=== PATIENT | female | born 1990 | race Native Hawaiian/Other Pacific Islander ===

== ENCOUNTER → 2020-04-26 | Outpatient (CLI) | payer OTHER ==
--- NOTE | 2020-04-26 08:48 | US ---
EXAMINATION TYPE: Transabdominal DATE OF EXAM: 04/26/2020 8:15 AM COMPARISON: NONE CLINICAL HISTORY: Z36 Confirm dates. EXAM PERFORMED: Transabdominal (TA) EXAM MEASUREMENTS: GESTATIONAL AGE / DATING Physician Established: Not yet established Dates by LMP: (10 weeks/3 days) EDC: Dates by First Scan: ( weeks/ days) EDC: Dates by Current Scan for: ( weeks/ days) EDC: MATERNAL ANATOMY Uterus: 12.9 x 7.7 x 3.5cm Right Ovary: 3.5 x 2.1 x 1.6cm Left Ovary: 2.6 x 1.6 x 1.9cm Post CDS / Adnexa: wnl Presence of free fluid: no Presence of corpus luteal cyst: 2 probable subchorionic bleeds measuring 1.2 x 1.3 x 0.8cm and 1.9 x 0.4 x 1.1cm GESTATION / SURVEY CRL: 2.8cm (9 weeks/4 days) Yolk Sac (normal less than 6mm): 4mm Heart Rate: 171 bpm Rhythm: Normal IUP: Viable IUP Date of LMP: 02/13/20 Beta HcG (if available): IMPRESSION: Single viable intrauterine . Subchorionic hemorrhage as noted.
[2020-04-26 08:57] LABS: HCT 36.4 % (34.0-46.0); MCH 28.4 pg (25.0-35.0); MCV 86.2 fL (80.0-100.0); Mean Platelet Volume 7.1; Platelet Count 289 k/uL (150-450); RBC 4.21 m/uL (3.80-5.40); RDW 12.9 % (11.5-15.5); WBC 8.4 k/uL (3.8-10.6)
[2020-04-26 09:15] LABS: African American GFR (CKD) >90 (>60 ml/min/1.73 sqM); Glucose 96 mg/dL (74-99); Non-African American GFR(CKD) >90 (>60 ml/min/1.73 sqM)
[2020-04-26 16:00] LABS: HIV 2 AB Non-Reactive (Non-Reactive); HIV AB P24 Non-Reactive (Non-Reactive); HIV P24 AG Non-Reactive (Non-Reactive)
== END | disposition home or self-care (01) ==
LOC: RADUSWWP 07:48
PROVIDERS: ATTEND Obstetrics & Gynecology
DX: O20.8 Other hemorrhage in early pregnancy (principal); Z3A.10 10 weeks gestation of pregnancy
CPT/HCPCS: 76801; 82565; 82947; 85027; 86762; 86780; 86850; 86900; 86901; 87340; 87390

== ENCOUNTER 2020-11-22 13:22 | Inpatient (IN) | payer OTHER ==
[2020-11-22] MEDS ORDERED: BUTORPHANOL 1 MG/ML 1 ML VIAL IV PRN (16:49)
[2020-11-22] MEDS ORDERED: DINOPROSTONE 10 MG INSERT.ER VAGINAL ONE (16:49)
[2020-11-22 17:00] VITALS: BP 118/76; PULSE 101; RESP 17; TEMP 98.4
--- NOTE | 2020-11-22 17:07 | P.HPOB ---
History of Present Illness H&P Date: 11/22/20 Chief Complaint: Requested induction of labor. This patient is a pleasant 30-year-old 2 para 1 female estimated date of confinement 11/22/2020 estimated gestational age 40-0/7 weeks who presents to labor and delivery for requested induction of labor. Patient's cervix is unfavorable and therefore presents for Cervidil placement. care has been uncomplicated. Review of Systems Genitourinary: Reports Menstruation: Reports amenorrhea Past Medical History Past Medical History: No Reported History Additional Past Medical History / Comment(s): Patient had a previous term vaginal delivery History of Any Multi-Drug Resistant Organisms: None Reported Past Surgical History: No Surgical Hx Reported Past Anesthesia/Blood Transfusion Reactions: No Reported Reaction Past Psychological History: No Psychological Hx Reported Smoking Status: Former smoker Past Alcohol Use History: None Reported Past Drug Use History: None Reported Medications and Allergies Home Medications Medication Instructions Recorded Confirmed Type No Known Home Medications 11/22/20 11/22/20 History Allergies Allergy/AdvReac Type Severity Reaction Status Date / Time No Known Allergies Allergy Verified 11/22/20 16:48 Exam Intake and Output 11/22/20 11/22/20 11/22/20 06:59 14:59 22:59 Other: Weight 111.13 kg - OBG Physical Exam Abdomen: bowel sounds normal, no diffuse tenderness, no bruit present, no guarding noted, no hepatomegaly, no splenomegaly, no mass Vulva: both: normal Vagina: normal moisture, no discharge Cervix: no lesion (Cervix is fingertip external os and uneffaced.), no discharge Uterus: enlarged (Fundal height 41 cm) Results blood work shows she is A positive, rubella immune, RPR nonreactive, hepatitis B negative, HIV is nonreactive, Glucola was 144 with a normal three- hour gtt., group B strep was negative, ultrasounds showed growth to be normal as well as anatomy. Assessment and Plan Assessment: This is a pleasant 30-year-old 2 para 1 female 40-0/7 weeks gestation with unfavorable cervix is presenting requesting induction of labor. Plan is Cervidil placement and anticipate vaginal delivery. (1) 40 weeks gestation of Current Visit: Yes Status: Acute Code(s): Z3A.40 - 40 WEEKS GESTATION OF SNOMED Code(s): 95507910 (2) Elective induction of labor planned Current Visit: Yes Status: Acute Code(s): OGJ8405 - SNOMED Code(s): 972251274
[2020-11-23] MEDS ORDERED: LIDOCAINE 0.5% (PF) 5 MG/ML (50 ML SDV) SQ PRN (05:26)
[2020-11-23] MEDS ORDERED: OXYTOCIN 10 UNIT/ML 1 ML VIAL IM PRN (05:26)
[2020-11-23] MEDS ORDERED: OXYTOCIN 30 UNITS/500 ML NS 30 UNIT in SALINE 1 500ML.BAG IV SCH (05:26)
[2020-11-23] MEDS ORDERED: CARBOPROST TROMETHAMINE 250 MCG/ML 1 ML AMP IM PRN (05:26)
[2020-11-23] MEDS ORDERED: TERBUTALINE 1 MG/ML VIAL SQ PRN (05:26)
[2020-11-23] MEDS ORDERED: LACTATED RINGERS 1,000 ML IV SCH (05:26)
[2020-11-23] MEDS ORDERED: METHYLERGONOVINE 0.2 MG/ML 1 ML AMP IM PRN (05:26)
--- NOTE | 2020-11-23 06:05 | P.PN ---
Progress Note - Text Progress Note Date: 11/23/20 Cervidil was removed earlier this morning. heart tones are category 1. Cervical exam shows cervix to be still closed internal os and thick. I discussed options with the patient including going home in retrying Cervidil and 2 days for next week, trial of Pitocin this morning, or outright . Patient has chosen to try the Pitocin this morning and most likely if this is ineffective come back in a different day and trying Cervidil again. Therefore this point we'll try Pitocin and reevaluate later on today.
[2020-11-23 06:37] LABS: Basophils % (A) 0 %; Eosinophils # (A) 0.1 k/uL (0-0.7); Eosinophils % (A) 1 %; HCT 29.3 % (34.0-46.0); HGB 9.8 gm/dL (11.4-16.0); Lymphocytes % (A) 23 %; MCHC 33.5 g/dL (31.0-37.0); MCV 80.6 fL (80.0-100.0); Monocytes # (A) 0.5 k/uL (0-1.0); Monocytes % (A) 5 %; Neutrophils # (A) 6.1 k/uL (1.3-7.7); Neutrophils % (A) 69 %; Platelet Count 332 k/uL (150-450); RBC 3.64 m/uL (3.80-5.40); RDW 15.7 % (11.5-15.5); WBC 8.7 k/uL (3.8-10.6)
--- NOTE | 2020-11-24 06:30 | P.DS ---
Providers Date of admission: 11/22/20 16:37 Expected date of discharge: 11/24/20 Attending physician: Nick Arzola Primary care physician: Stated None - Discharge Diagnosis(es) (1) 40 weeks gestation of Status: Acute (2) Elective induction of labor planned Status: Acute Hospital Course: Please see dictated H&P and progress notes on this patient's admission. Brief summary this pleasant 30-year-old 2 para 1 female 40 weeks gestation admitted for two-stage induction of labor. Despite Cervidil and Pitocin she had no cervical change and was not dilated. I discussed options with the patient including outright section versus coming back later to different date and trying Cervidil again and she elected to proceed with going home and coming back try Cervidil another day. Patient come back on the for Cervidil placement attempt at induction again. heart tones were reactive the entire time in the hospital without concerns. Patient Condition at Discharge: Stable Plan - Discharge Summary New Discharge Prescriptions: No Action Pnv No.95/Ferrous Fum/Folic AC [ Multivitamin Tablet] 1 tab PO DAILY Discharge Medication List Pnv No.95/Ferrous Fum/Folic AC [ Multivitamin Tablet] 1 tab PO DAILY 11/23/20 [History] Discharge Disposition: HOME SELF-CARE
== END 2020-11-23 12:02 | disposition home or self-care (01) | DRG 833 ==
LOC: 4FBP 16:37
PROVIDERS: ADMIT Obstetrics & Gynecology; ATTEND Obstetrics & Gynecology
DX: O48.0 Post-term pregnancy (principal); Z3A.40 40 weeks gestation of pregnancy; Z87.891 Personal history of nicotine dependence
CPT/HCPCS: 85025; 86850; 86900; 86901

== ENCOUNTER 2020-11-24 16:01 | Inpatient (IN) | payer OTHER ==
[2020-11-24] MEDS ORDERED: DINOPROSTONE 10 MG INSERT.ER VAGINAL ONE (16:03)
--- NOTE | 2020-11-24 17:17 | P.HPOB ---
History of Present Illness H&P Date: 11/24/20 Chief Complaint: Post dates for induction This patient is a pleasant 30-year-old 2 para 1 female estimated date of confinement 11/22/2020 estimated gestational age 40-2/7 weeks who presents to labor and delivery for two-stage induction of labor secondary to postdates and unfavorable cervix. Patient was here approximately 2 days ago and had an attempted Cervidil placement and Pitocin without change in her cervix. At that time I discussed delivery by section versus trial again of the Cervidil and she elected to try the Cervidil again. care has been uncomplicated. Review of Systems Genitourinary: Reports Menstruation: Reports amenorrhea Past Medical History Past Medical History: No Reported History Additional Past Medical History / Comment(s): Patient had a previous term vaginal delivery History of Any Multi-Drug Resistant Organisms: None Reported Past Surgical History: No Surgical Hx Reported Additional Past Surgical History / Comment(s): [place] tooth extraction Past Anesthesia/Blood Transfusion Reactions: No Reported Reaction Past Psychological History: No Psychological Hx Reported Smoking Status: Former smoker Past Alcohol Use History: None Reported Past Drug Use History: None Reported - Past Family History Mother Family Medical History: Cancer, Diabetes Mellitus Additional Family Medical History / Comment(s): Type II DM Medications and Allergies Home Medications Medication Instructions Recorded Confirmed Type Pnv No.95/Ferrous Fum/Folic AC 1 tab PO DAILY 11/23/20 11/24/20 History [ Multivitamin Tablet] Allergies Allergy/AdvReac Type Severity Reaction Status Date / Time No Known Allergies Allergy Verified 11/24/20 16:02 Exam Vital Signs Temp Pulse Resp BP 11/24/20 16:09 97.7 F 99 16 117/59 Intake and Output 11/24/20 11/24/20 11/24/20 06:59 14:59 22:59 Other: Weight 111.13 kg - OBG Physical Exam Abdomen: bowel sounds normal, no diffuse tenderness, no bruit present, no guarding noted, no hepatomegaly, no splenomegaly, no mass Vulva: both: normal Cervix: no lesion (Cervix is closed and effaced -3 station), no discharge Uterus: enlarged (Fundal height is 41 cm) Results blood work shows she is A+, rubella immune, RPR is nonreactive, HIV is nonreactive, hepatitis B is negative, Glucola was 144 with a normal three-hour gtt., group B strep was negative, ultrasounds done has shown normal anatomy and growth. Assessment and Plan Assessment: This is a pleasant 30-year-old 2 para 1 female 40-3/7 weeks gestation who is admitted for two-stage induction of labor. Plan is Cervidil placement and anticipate vaginal delivery. I did discuss with the patient that if she does not change with this attempt at induction we may need to proceed with section for delivery. (1) 40 weeks gestation of Current Visit: No Status: Acute Code(s): Z3A.40 - 40 WEEKS GESTATION OF SNOMED Code(s): 65353388
[2020-11-25] MEDS ORDERED: LIDOCAINE 0.5% (PF) 5 MG/ML (50 ML SDV) SQ PRN (05:47)
[2020-11-25] MEDS ORDERED: TERBUTALINE 1 MG/ML VIAL SQ PRN (05:47)
[2020-11-25] MEDS ORDERED: CARBOPROST TROMETHAMINE 250 MCG/ML 1 ML AMP IM PRN (05:47)
[2020-11-25] MEDS ORDERED: METHYLERGONOVINE 0.2 MG/ML 1 ML AMP IM PRN (05:47)
[2020-11-25] MEDS ORDERED: OXYTOCIN 10 UNIT/ML 1 ML VIAL IM PRN (05:47)
[2020-11-25] MEDS ORDERED: OXYTOCIN 30 UNITS/500 ML NS 30 UNIT in SALINE 1 500ML.BAG IV SCH ×3 (05:47→17:15)
[2020-11-25] MEDS: LACTATED RINGERS 1,000 ML IV SCH ×6 (06:11→17:58)
[2020-11-25 06:35] LABS: Basophils % (A) 0 %; Eosinophils # (A) 0.1 k/uL (0-0.7); Eosinophils % (A) 1 %; HCT 28.1 % (34.0-46.0); HGB 9.5 gm/dL (11.4-16.0); Lymphocytes % (A) 24 %; MCH 27.2 pg (25.0-35.0); MCHC 33.9 g/dL (31.0-37.0); MCV 80.1 fL (80.0-100.0); Mean Platelet Volume 8.2; Monocytes # (A) 0.5 k/uL (0-1.0); Monocytes % (A) 5 %; Neutrophils # (A) 5.9 k/uL (1.3-7.7); Neutrophils % (A) 69 %; Platelet Count 332 k/uL (150-450); RBC 3.51 m/uL (3.80-5.40); RDW 15.8 % (11.5-15.5); WBC 8.6 k/uL (3.8-10.6)
[2020-11-25] MEDS: BUTORPHANOL 1 MG/ML 1 ML VIAL IV PRN ×2 (07:43→13:29)
[2020-11-25] MEDS ORDERED: fentaNYL (PF) 50 MCG/ML 5 ML AMP ONE (09:10)
[2020-11-25] MEDS ORDERED: ROPIVACAINE 5MG/ML 20ML VIAL ONE (09:10)
[2020-11-25] MEDS ORDERED: SODIUM CHLORIDE 0.9% 100 ML BAG ONE (09:10)
[2020-11-25] MEDS ORDERED: CITRIC ACID-SODIUM CITRATE 15 ML CUP PO ONE (15:34)
[2020-11-25] MEDS ORDERED: OXYTOCIN 10 UNIT/ML 1 ML VIAL ONE (15:50)
[2020-11-25] MEDS ORDERED: MORPHINE SULFATE (PF) 0.3 MG/0.3 ML SYR ONE (15:50)
[2020-11-25] MEDS ORDERED: ONDANSETRON 4 MG/2 ML VIAL ONE (15:50)
[2020-11-25] MEDS ORDERED: SUCCINYLCHOLINE CHLORIDE 100 MG/5 ML SYR IV ONE (15:50)
[2020-11-25] MEDS ORDERED: PROPOFOL 10 MG/ML 20 ML VIAL IV ONE (15:50)
[2020-11-25] MEDS ORDERED: LIDOCAINE 1% INJ 10MG/ML (20 ML MDV) ONE (15:50)
[2020-11-25] MEDS ORDERED: DEXAMETHASONE SOD PHOSPHATE 10 MG/ML 1 ML VIAL ONE (15:50)
[2020-11-25] MEDS ORDERED: fentaNYL (PF) 50 MCG/ML 2 ML AMP ONE (15:50)
[2020-11-25] MEDS ORDERED: METHYLERGONOVINE 0.2 MG/ML 1 ML AMP ONE (15:50)
[2020-11-25] MEDS ORDERED: miSOPROStoL 200 MCG TAB RECTAL STA (16:15)
--- NOTE | 2020-11-25 16:55 | XR ---
EXAMINATION TYPE: XR abdomen 1V DATE OF EXAM: 11/25/2020 COMPARISON: NONE HISTORY: Sponge count TECHNIQUE: Single view FINDINGS: There is no sign of intestinal obstruction or pneumoperitoneum. There are skin priscilla over the lower anterior abdomen. There is no evidence of a mass. There is large uterus. There is no evide nce of abdominal foreign body. IMPRESSION: No foreign body seen.
[2020-11-25] MEDS ORDERED: bisacodyL 10 MG SUPP RECTAL PRN (17:10)
[2020-11-25] MEDS ORDERED: LANOLIN CREAM 5 GM TUBE TOPICAL PRN ×2 (17:10→17:15)
[2020-11-25] MEDS ORDERED: HYDROCORTISONE 2.5% RECTAL CREAM 30 GM TUBE RECTAL PRN (17:10)
[2020-11-25] MEDS ORDERED: ACETAMINOPHEN TAB 325 MG TAB PO PRN (17:10)
[2020-11-25] MEDS ORDERED: diphenhydrAMINE 25 MG CAP PO PRN ×2 (17:10→17:15)
[2020-11-25] MEDS ORDERED: diphenhydrAMINE 50 MG/ML 1 ML VIAL IVP PRN ×2 (17:10→17:15)
[2020-11-25] MEDS ORDERED: IBUPROFEN 600 MG TAB PO SCH (17:10)
[2020-11-25] MEDS ORDERED: SIMETHICONE 80 MG CHEWABLE PO PRN ×2 (17:10→17:15)
[2020-11-25] MEDS ORDERED: BENZOCAINE/MENTHOL SPRAY 1 GM/SPRAY AEROSOL TOPICAL PRN (17:10)
[2020-11-25] MEDS ORDERED: ZOLPIDEM 5 MG TAB PO PRN (17:10)
[2020-11-25] MEDS ORDERED: NALOXONE 0.4 MG/ML 1 ML VIAL IV PRN (17:15)
[2020-11-25] MEDS ORDERED: METOCLOPRAMIDE 5 MG/ML 2 ML VIAL IVP PRN (17:15)
[2020-11-25] MEDS ORDERED: LACTATED RINGERS 1,000 ML IV SCH (17:15)
[2020-11-25] MEDS ORDERED: ONDANSETRON 4 MG/2 ML VIAL IVP PRN (17:15)
[2020-11-25] MEDS ORDERED: SENNOSIDES-DOCUSATE SODIUM 1 EACH TAB PO SCH (17:15)
--- NOTE | 2020-11-25 18:41 | P.OP ---
Date of Procedure: 11/25/20 Preoperative Diagnosis: #1: 40-3/7 week intrauterine . #2: Patient requesting section due to excessive discomfort Postoperative Diagnosis: Same Procedure(s) Performed: #1: Primary low transverse section Anesthesia: NAEEM Surgeon: Nick Arzola Assistant Wrestling Coach #1: Kim Means Estimated Blood Loss (ml): 1,000 Pathology: other (Central) Condition: stable Disposition: floor Indications for Procedure: Please see dictated H&P for intimate details of this patient's admission. In brief summary this is a pleasant 30-year-old 2 para 1 female 40-3/7 weeks gestation who is admitted to labor and delivery last evening for two-stage induction of labor secondary to unfavorable cervix. Patient had a Cervidil placed last evening and this morning she was 3 cm dilated. She had artificial rupture membranes for clear fluid. Labor is induced with Pitocin per protocol. She has received Stadol and then an epidural for pain control. Unfortunately patient gets to 6-7 cm dilated and the epidural appears to be ineffective. She is given other doses of Stadol again without relief. At 7 take centimeters dilated patient at this time demands section for delivery. Discussed with the patient however she is quite out of control at this time and I certainly her request because the head is still at 0 station and delivery is remote. She does understand the surgery and risks and risks of infection, bleeding, possible injury bowel, bladder, vessels, and/or other organs. I also discussed the type of anesthesia for delivery and she also requests to go to sleep and will not try a spinal or dosing the epidural. All the patient's questions are answered and a written consent is obtained. Operative Findings: This is a vigorous viable female Apgars 9 and 10 delivery time is 1600 h rs. Patient had uterine atony that required multiple medications to control. Description of Procedure: This patient has a Hernandes catheter placed to straight drain. Patient is urgently taken to the operating room where she is laid in the supine position. She has abdominal prep and drape. The appropriate timeout was done prior to general anesthesia. Rapid sequence general anesthesia is then done. Scalpels then taken Pfannenstiel skin incision is then made. A second scalpel is taken down the fascia and the fascia scored with a knife. Fascial incision extended bila terally using the Holden scissors. Fascia is then dissected off the rectus muscles sharply. Rectus muscles are the peritoneum identified and entered sharply. Bladder blade is then placed. Bladder peritoneum was taken sharply off the lower uterine segment. Scalpels and taken a low transverse uterine incision is made. Using a hemostat I enter the uterine cavity bluntly and there is loss of clear fluid. The uterine incision is extended bluntly. The the infant's head is found to be in a transverse location and is gently guided through the incision with fundal pressure delivered. Also nares are bulb suctioned and there is no evidence of a nuchal cord. With more fundal pressure we have delivery the rest of this infant's body. This is a vigorous viable female Apgars are 9 and 10 delivery time is 1600 hrs. 's umbilical cord is doubly clamped and cut appears to be trivascular. The is then handed off to the nurses in attendance. With this done the placenta is then manually extracted intact. Uterus is externalized and edges are demarcated with Etienne clamps. All tissue is removed. The uterus is noted be quite boggy at this time and therefore 10 units of Pitocin was given IV push as well as IV Pitocin and the drip. Uterine massage is done as well patient continues to be quite boggy and therefore is given 0.2 mg of Methergine. Despite this and uterine massage to continue to have uterine atony at this time 800 mcg of Cytotec is given rectally. At this time this appears to be working and I did go down below and check her vaginal bleeding and it appeared to be normal. At this time excess fluid is removed from the abdomen and pelvis. Uterus is placed back into the abdomen. The parietal peritoneum was then closed using 0 Vicryl runni ng fashion. Rectus muscles are reapproximated in 0 Vicryl interrupted fashion. Fascia is then closed using 0 PDS. Fascial incision is intact and hemostatic. Subcutaneous tissues and closed using a 3-0 Vicryl. Skin is and closed using priscilla. Due to the urgent nature of the section, it was brought to my attention that an initial (sponge) count was not done therefore I did order a fl at plate x-ray although we were certain no surgical equipment or sponges were left. The flat plate x-ray confirmed no evidence of retained foreign objects. With this done the patient is awakened from anesthesia and taken to the birthing suite in satisfactory condition. All counts correct 3. There are no complications other than the uterine atony which was treated. and mother were stable in delivery room.
[2020-11-25] MEDS ORDERED: METHYLERGONOVINE 0.2 MG TAB PO SCH (22:00)
[2020-11-25] MEDS: ACETAMINOPHEN TAB 500 MG TAB PO PRN (22:45)
[2020-11-25] MEDS: SENNOSIDES-DOCUSATE SODIUM 1 EACH TAB PO SCH (22:46)
[2020-11-26] MEDS: KETOROLAC 15 MG/ML 1 ML VIAL IVP PRN ×3 (01:04→14:24)
[2020-11-26] MEDS: LACTATED RINGERS 1,000 ML IV SCH (03:07)
[2020-11-26] MEDS: ACETAMINOPHEN TAB 500 MG TAB PO PRN ×3 (05:51→17:57)
[2020-11-26 06:31] LABS: Anisocytosis Slight; Basophils % (A) 0 %; Eosinophils % (A) 0 %; HCT 24.6 % (34.0-46.0); HGB 8.1 gm/dL (11.4-16.0); Hypochromasia Slight; Lymphocytes # (A) 2.1 k/uL (1.0-4.8); Lymphocytes % (A) 16 %; MCHC 33.1 g/dL (31.0-37.0); MCV 81.6 fL (80.0-100.0); Mean Platelet Volume 8.9; Monocytes # (A) 0.7 k/uL (0-1.0); Monocytes % (A) 5 %; Neutrophils # (A) 10.2 k/uL (1.3-7.7); Neutrophils % (A) 78 %; Platelet Count 274 k/uL (150-450); RBC 3.01 m/uL (3.80-5.40); RDW 16.2 % (11.5-15.5); WBC 13.1 k/uL (3.8-10.6)
--- NOTE | 2020-11-26 06:39 | P.PNOBGPC ---
Subjective - Subjective Patient reports: Reports appetite normal, Reports voiding normally, Reports pain well controlled, Reports ambulating normally : doing well Objective - Vital Signs Latest vital signs: Vital Signs Temp Pulse Pulse Resp BP 11/26/20 03:06 98.7 F 80 16 105/71 11/26/20 00:00 97.9 F 79 16 138/93 11/25/20 20:00 98.2 F 89 16 118/62 11/25/20 19:00 89 16 119/67 11/25/20 18:30 81 16 111/56 11/25/20 17:59 80 16 112/57 11/25/20 17:45 83 16 113/64 11/25/20 17:30 87 16 114/65 11/25/20 17:15 100 16 128/62 11/25/20 17:00 96.8 F L 115 H 16 110/58 Intake and Output 11/25/20 11/25/20 11/26/20 14:59 22:59 06:59 Intake Total 2000 Output Total 250 200 600 Balance 1750 -200 -600 Intake: IV 2000 Output: Urine 250 200 600 Uretheral (Hernandes) 400 Other: Voiding Method Indwelling Catheter Indwelling Catheter - Exam Lungs: bilateral: normal Chest: Normal S1, Normal S2 Extremities: Present: normal Abdomen: Present: normal appearance, soft. Absent: distention, tenderness Incision: Present: normal, dry, intact Uterus: Present: normal, firm - Labs Labs: Abnormal Lab Results - Last 24 Hours (Table) 11/26/20 Range/Units 06:09 WBC 13.1 H (3.8-10.6) k/uL RBC 3.01 L (3.80-5.40) m/uL Hgb 8.1 L (11.4-16.0) gm/dL Hct 24.6 L (34.0-46.0) % RDW 16.2 H (11.5-15.5) % Neutrophils # 10.2 H (1.3-7.7) k/uL Assessment and Plan Assessment: Postoperative day #1. Patient is resting with oh nuchal complaints. Vital signs are stable she is afebrile. Uterus is firm nontender and her incision is intact and dry. Hemoglobin today was 8.1. Preoperatively was 9.5. Plan today is to discontinue her catheter, encourage ambulation, advance her diet, and continue routine postoperative care. (1) 40 weeks gestation of Current Visit: No Status: Acute Code(s): Z3A.40 - 40 WEEKS GESTATION OF SNOMED Code(s): 62403323
[2020-11-26] MEDS: SENNOSIDES-DOCUSATE SODIUM 1 EACH TAB PO SCH ×2 (08:18→20:21)
[2020-11-26] MEDS: FERROUS SULFATE 325 MG TAB PO SCH ×2 (11:32→20:20)
[2020-11-26] MEDS: IBUPROFEN 600 MG TAB PO PRN (20:20)
[2020-11-27 00:56] VITALS: RESP 16
--- NOTE | 2020-11-27 07:18 | P.PNOBGPC ---
Subjective - Subjective Patient reports: Reports appetite normal, Reports voiding normally, Reports pain well controlled, Reports ambulating normally : doing well Objective - Vital Signs Latest vital signs: Vital Signs Temp Pulse Resp BP Pulse Ox 11/27/20 00:00 98.9 F 76 16 98/60 99 11/26/20 20:00 97.8 F 71 17 99/61 99 11/26/20 17:00 98.5 F 81 14 111/72 11/26/20 12:00 98 F 68 14 106/63 11/26/20 08:00 97.8 F 80 16 110/63 Intake and Output 11/26/20 11/27/20 11/27/20 22:59 06:59 14:59 Output Total 500 Balance -500 Output: Urine 500 - Exam Lungs: bilateral: normal Chest: Normal S1, Normal S2 Extremities: Present: normal Abdomen: Present: normal appearance, soft. Absent: distention, tenderness Incision: Present: normal, dry, intact Uterus: Present: normal, firm Assessment and Plan Assessment: Postoperative day #2. Patient is resting without complaints and wishes to go home. Vital signs are stable she is afebrile. Uterus is firm nontender and she is having normal lochia. Incision is intact and dry. My impression is a normal postoperative course. Patient is felt to be stable for discharge home follow up with me in 1 week. (1) 40 weeks gestation of Current Visit: No Status: Acute Code(s): Z3A.40 - 40 WEEKS GESTATION OF SNOMED Code(s): 22841552
--- NOTE | 2020-11-27 07:32 | P.DS ---
Providers Date of admission: 11/24/20 16:01 Expected date of discharge: 11/27/20 Attending physician: Nick Arzola Primary care physician: Stated None - Discharge Diagnosis(es) (1) 40 weeks gestation of Current Visit: No Status: Acute Hospital Course: Please see dictated H&P for intimate details of this patient's admission. Brief summary this is a 30-year-old 2 para 1 female 40-3/7 weeks gestation who was initially admitted for two-stage induction of labor. Patient's subsequent was on have a primary section. Please see dictated operative note. Patient is chronically anemic and is started on iron postoperatively. Postoperative 2 she continues to well was felt to be stable for discharge home follow up with me in 1 week. Procedures: Induction of labor and primary low transverse section Patient Condition at Discharge: Good Plan - Discharge Summary New Discharge Prescriptions: New Ibuprofen [Motrin] 600 mg PO Q6H PRN #30 tab PRN Reason: Pain Ferrous Sulfate [Iron (65 MG Elemental)] 325 mg PO BID-W/MEALS #60 tab oxyCODONE HCL [OxyIR] 5 mg PO Q4HR PRN #18 tab PRN Reason: Pain Scale 4 - 6 No Action Pnv No.95/Ferrous Fum/Folic AC [ Multivitamin Tablet] 1 tab PO DAILY Discharge Medication List Pnv No.95/Ferrous Fum/Folic AC [ Multivitamin Tablet] 1 tab PO DAILY 11/23/20 [History] Ferrous Sulfate [Iron (65 MG Elemental)] 325 mg PO BID-W/MEALS #60 tab 11/27/20 [Rx] Ibuprofen [Motrin] 600 mg PO Q6H PRN #30 tab 11/27/20 [Rx] oxyCODONE HCL [OxyIR] 5 mg PO Q4HR PRN #18 tab 11/27/20 [Rx] Follow up Appointment(s)/Referral(s): Nick Arzola MD [STAFF PHYSICIAN] - 01/04/21 11:15 am (Please see me in 1 week for an incision check as well.) Patient Instructions/Handouts: (DC) Activity/Diet/Wound Care/Special Instructions: No heavy lifting or strenuous activity for 6 weeks. Please call if any fever, chills, excessive vaginal bleeding, and/or abdominal pain. Discharge Disposition: HOME SELF-CARE
[2020-11-27] MEDS: IBUPROFEN 600 MG TAB PO PRN (08:15)
[2020-11-27] MEDS: SENNOSIDES-DOCUSATE SODIUM 1 EACH TAB PO SCH (08:15)
[2020-11-27] MEDS: FERROUS SULFATE 325 MG TAB PO SCH (08:15)
[2020-11-27 09:30] VITALS: BP 134/79; PULSE 83; TEMP 98.2
--- NOTE | 2020-11-27 18:55 | P.PN ---
Progress Note - Text Date:11/25/20 Time:1159 Patient is status post . Patient seen this morning with VAS score of 4. c/o of pruritus, no c/o nausea/vomiting, comfortable and doing well today.
== END 2020-11-27 11:00 | disposition home or self-care (01) | DRG 788 ==
LOC: 4FBP 16:01
PROVIDERS: ADMIT Obstetrics & Gynecology; ATTEND Obstetrics & Gynecology
PROC: 10D00Z1 Extraction of Products of Conception, Low, Open Approach (ICD-10-PCS; principal; 2020-11-25 06:30)
DX: O48.0 Post-term pregnancy (principal); D64.9 Anemia, unspecified; O62.2 Other uterine inertia; O99.02 Anemia complicating childbirth; Z37.0 Single live birth; Z3A.40 40 weeks gestation of pregnancy; Z83.3 Family history of diabetes mellitus; Z87.891 Personal history of nicotine dependence
CPT/HCPCS: 74018; 85025; 88307

== ENCOUNTER 2024-01-24 13:19 | Emergency (ER) | payer OTHER ==
[2024-01-24 13:26] VITALS: RESP 16
--- NOTE | 2024-01-24 13:36 | ED ---
ENT HPI - General Chief complaint: ENT Stated complaint: ear pain Time Seen by Provider: 01/24/24 13:36 Source: patient, RN notes reviewed Mode of arrival: ambulatory Limitations: no limitations - History of Present Illness Initial comments: This is a 33-year-old female with no significant past medical history presents the emergency department chief complaint of otalgia of the right ear over the past few days. Patient states that she was evaluated at an urgent care in the end of December for similar symptoms and was discharged home on oral amoxicillin and topical steroid drops. States that symptoms improved however over the past few days ear pain has returned and worsening from her initial visit. States that she has felt nauseous as well with no symptoms of emesis. Denies fevers, chills, cough, rhinorrhea or congestion. - Related Data Home Medications Medication Instructions Recorded Confirmed Pnv No.95/Ferrous Fum/Folic AC 1 tab PO DAILY 11/23/20 11/24/20 [ Multivitamin Tablet] Previous Rx's Medication Instructions Recorded Ferrous Sulfate [Iron (65 MG 325 mg PO BID-W/MEALS #60 tab 11/27/20 Elemental)] Ibuprofen [Motrin] 600 mg PO Q6H PRN #30 tab 11/27/20 oxyCODONE HCL [OxyIR] 5 mg PO Q4HR PRN #18 tab 11/27/20 Amoxic-Pot Clav 875-125Mg 1 tab PO Q12HR #20 tab 01/24/24 [Augmentin 875-125] Fluticasone Nasal [place] [Flonase 2 spr EA NOSTRIL DAILY #16 gm 01/24/24 Nasal [place]] Ibuprofen [Motrin] 800 mg PO Q6HR #30 tab 01/24/24 Loratadine [Claritin] 10 mg PO DAILY #10 tab 01/24/24 Allergies Allergy/AdvReac Type Severity Reaction Status Date / Time No Known Allergies Allergy Verified 11/24/20 16:02 Review of Systems ROS Statement: Those systems with pertinent positive or pertinent negative responses have been documented in the HPI. ROS Other: All systems not noted in ROS Statement are negative. Past Medical History Past Medical History: No Reported History Additional Past Medical History / Comment(s): Patient had a previous term vaginal delivery History of Any Multi-Drug Resistant Organisms: None Reported Past Surgical History: No Surgical Hx Reported Additional Past Surgical History / Comment(s): [place] tooth extraction Past Anesthesia/Blood Transfusion Reactions: No Reported Reaction Past Psychological History: No Psychological Hx Reported Smoking Status: Former smoker Past Alcohol Use History: None Reported Past Drug Use History: None Reported - Past Family History Mother Family Medical History: Cancer, Diabetes Mellitus Additional Family Medical History / Comment(s): Type II DM General Exam Limitations: no limitations General appearance: alert, in no apparent distress Head exam: Present: atraumatic, normocephalic, normal inspection Eye exam: Present: normal appearance, PERRL, EOMI. Absent: scleral icterus, conjunctival injection, periorbital swelling Expanded TM/Canal exam: Erythema: Right TM, Bulging: Right TM, Effusion: Right TM, Loss of Landmarks: Right TM Neck exam: Present: lymphadenopathy (right tonsillar) Respiratory exam: Present: normal lung sounds bilaterally. Absent: respiratory distress, wheezes, rales, rhonchi, stridor Cardiovascular Exam: Present: regular rate, normal rhythm, normal heart sounds. Absent: systolic murmur, diastolic murmur, rubs, gallop, clicks GI/Abdominal exam: Present: soft, normal bowel sounds. Absent: distended, tenderness, guarding, rebound, rigid Back exam: Present: normal inspection Skin exam: Present: warm, dry, intact, normal color. Absent: rash Course Vital Signs 01/24/24 13:25 Temperature 97.8 F Pulse Rate 69 Respiratory 16 Rate Blood Pressure 112/73 O2 Sat by Pulse 95 Oximetry Medical Decision Making - Medical Decision Making Was pt. sent in by a medical professional or institution (, PA, SENIOR ONLINE MARKETING MANAGER, urgent care, hospital, or senior care...) When possible be specific @ -No Did you speak to anyone other than the patient for history (EMS, parent, family, police, friend...)? What history was obtained from this source @ -No Did you review nursing and triage notes (agree or disagree)? Why? @ -I reviewed and agree with nursing and triage notes Were old charts reviewed (outside hosp., previous admission, EMS record, old EKG, old radiological studies, urgent care reports/EKG's, senior care records)? Report findings @ -No old charts were reviewed Differential Diagnosis (chest pain, altered mental status, abdominal pain women, abdominal pain men, vaginal bleeding, weakness, fever, dyspnea, syncope, headache, dizziness, GI bleed, back pain, seizure, CVA, palpatations, mental health, musculoskeletal)? @ -Otalgia, otitis media, otitis externa, malignant otitis externa, this list is not all inclusive. EKG interpreted by me (3pts min.). @ -None X-rays interpreted by me (1pt min.). @ -None done CT interpreted by me (1pt min.). @ -None done U/S interpreted by me (1pt. min.). @ -None done What testing was considered but not performed or refused? (CT, X-rays, U/S, labs)? Why? @ -None What meds were considered but not given or refused? Why? @ -None Did you discuss the management of the patient with other professionals (professionals i.e. , PA, SENIOR ONLINE MARKETING MANAGER, lab, RT, psych nurse, child welfare social worker, saw sharpener, teacher, army senior officer, case mgr)? Give summary @ -No Was smoking cessation discussed for >3mins.? @ -No Was critical care preformed (if so, how long)? @ -No Were there social determinants of health that impacted care today? How? (Homelessness, low income, unemployed, alcoholism, drug addiction, transportation, low edu. Level, literacy, decrease access to med. care, fdc, rehab)? @ -No Was there de-escalation of care discussed even if they declined (Discuss DNR or withdrawal of care, Hospice)? DNR status @ -No What co-morbidities impacted this encounter? (DM, HTN, Smoking, COPD, CAD, Cancer, CVA, ARF, Chemo, Hep., AIDS, mental health diagnosis, sleep apnea, morbid obesity)? @ -None Was patient admitted / discharged? Hospital course, mention meds given and route, prescriptions, significant lab abnormalities, going to OR and other pertinent info. @ -Discharge. 33-year-old female with right ear pain. On examination patient noted to have a bulging right TM and signs of an effusion. Vitals are stable upon arrival. She will be discharged home with an oral course of Augmentin and a prescription for Flonase and Claritin. Recommend the patient complete full course of antibiotics as prescribed. All questions answered at bedside and strict return parameters discussed with the patient she is verbalized understanding. Case discussed with Dr. Holman. Undiagnosed new problem with uncertain prognosis? @ -No Drug Therapy requiring intensive monitoring for toxicity (Heparin, Nitro, Insulin, Cardizem)? @ -No Were any procedures done? @ -No Diagnosis/symptom? @ -otalgia, otitis media of right ear Acute, or Chronic, or Acute on Chronic? @ -Acute Uncomplicated (without systemic symptoms) or Complicated (systemic symptoms)? @ -uncomplicated Side effects of treatment? @ -No Exacerbation, Progression, or Severe Exacerbation? @ -No Poses a threat to life or bodily function? How? (Chest pain, [place], [place], pneumonia, PE, COPD, DKA, ARF, appy, cholecystitis, CVA, Diverticulitis, Homicidal, Suicidal, threat to staff... and all critical care pts) @ -No Disposition Clinical Impression: Otitis media, Otalgia of right ear Disposition: HOME SELF-CARE Condition: Good Instructions (If sedation given, give patient instructions): Ear Infection (ED) Prescriptions: Amoxic-Pot Clav 875-125Mg [Augmentin 875-125] 1 tab PO Q12HR #20 tab Loratadine [Claritin] 10 mg PO DAILY #10 tab Fluticasone Nasal [place] [Flonase Nasal [place]] 2 spr EA NOSTRIL DAILY #16 gm Ibuprofen [Motrin] 800 mg PO Q6HR #30 tab Is patient prescribed a controlled substance at d/c from ED?: No Referrals: None,Stated [Primary Care Provider] - 1-2 days Time of Disposition: 13:51
[2024-01-24 14:01] VITALS: BP 115/79; PULSE 71; TEMP 98
== END 2024-01-24 14:01 | disposition home or self-care (01) ==
LOC: EC 13:19
DX: H65.91 Unspecified nonsuppurative otitis media, right ear (principal); R59.0 Localized enlarged lymph nodes; Z87.891 Personal history of nicotine dependence
CPT/HCPCS: 99282

== ENCOUNTER 2024-02-04 14:29 | Emergency (ER) | payer OTHER ==
--- NOTE | 2024-02-04 14:52 | ED ---
ENT HPI - General Source: patient, RN notes reviewed, old records reviewed Mode of arrival: ambulatory Limitations: no limitations <Gloria Sethi - Last Filed: 02/04/24 16:02> <Brenda Elena - Last Filed: 02/04/24 17:34> - General Chief complaint: ENT Stated complaint: EAR PAIN Time Seen by Provider: 02/04/24 14:47 - History of Present Illness Initial comments: 33-year-old female presenting to the ER with a chief complaint of right ear pain. She states since December 18 of this year she has been endorsing right ear pain. She was seen by urgent care on the and diagnosed with otitis media. Patient was started on amoxicillin. 33-year-old female presenting to the ER with a chief complaint of right ear pain. She states since December 18 of this year she has been endorsing right ear pain. She was seen by urgent care on the and diagnosed with otitis media. Patient was started on amoxicillin. She states she finished the amoxicillin on January 15. Patient states symptoms persisted and was seen here on January 23. Patient was prescribed Augmentin, loratadine and Flonase. Patient completed full course and has still not had any improvement which brought her to the ER today. She states since then she has been endorsing mild posterior ear pain. She denies any known fevers or chills. She admits to decreased hearing out of the right ear. No other acute complaints. (Gloria Sethi) - Related Data Home Medications Medication Instructions Recorded Confirmed Pnv No.95/Ferrous Fum/Folic AC 1 tab PO DAILY 11/23/20 11/24/20 [ Multivitamin Tablet] Previous Rx's Medication Instructions Recorded Ferrous Sulfate [Iron (65 MG 325 mg PO BID-W/MEALS #60 tab 11/27/20 Elemental)] Ibuprofen [Motrin] 600 mg PO Q6H PRN #30 tab 11/27/20 oxyCODONE HCL [OxyIR] 5 mg PO Q4HR PRN #18 tab 11/27/20 Amoxic-Pot Clav 875-125Mg 1 tab PO Q12HR #20 tab 01/24/24 [Augmentin 875-125] Fluticasone Nasal [place] [Flonase 2 spr EA NOSTRIL DAILY #16 gm 01/24/24 Nasal [place]] Ibuprofen [Motrin] 800 mg PO Q6HR #30 tab 01/24/24 Loratadine [Claritin] 10 mg PO DAILY #10 tab 01/24/24 Allergies Allergy/AdvReac Type Severity Reaction Status Date / Time No Known Allergies Allergy Verified 02/04/24 14:32 Review of Systems ROS Other: All systems not noted in ROS Statement are negative. <Gloria Sethi - Last Filed: 02/04/24 16:02> ROS Other: All systems not noted in ROS Statement are negative. <Brenda Elena - Last Filed: 02/04/24 17:34> ROS Statement: Those systems with pertinent positive or pertinent negative responses have been documented in the HPI. Past Medical History Past Medical History: No Reported History Additional Past Medical History / Comment(s): Patient had a previous term vaginal delivery History of Any Multi-Drug Resistant Organisms: None Reported Past Surgical History: No Surgical Hx Reported Additional Past Surgical History / Comment(s): [place] tooth extraction Past Anesthesia/Blood Transfusion Reactions: No Reported Reaction Past Psychological History: No Psychological Hx Reported Smoking Status: Former smoker Past Alcohol Use History: Occasional Past Drug Use History: Marijuana - Past Family History Mother Family Medical History: Cancer, Diabetes Mellitus Additional Family Medical History / Comment(s): Type II DM <Gloria Sethi - Last Filed: 02/04/24 16:02> General Exam Limitations: no limitations General appearance: alert, in no apparent distress Head exam: Present: atraumatic, normocephalic, normal inspection ENT exam: Present: normal exam, normal oropharynx, mucous membranes moist, other (Left tympanic membrane normal. Right tympanic membrane has areas concerning of the sclerotic material send her membrane is clear. There is no purulent drainage. Membrane is intact. No surrounding erythema. Patient does have mild right posterior auricular pain.) Neck exam: Present: normal inspection. Absent: tenderness, meningismus, lymphadenopathy Respiratory exam: Present: normal lung sounds bilaterally. Absent: respiratory distress, wheezes, rales, rhonchi, stridor Cardiovascular Exam: Present: regular rate, normal rhythm, normal heart sounds. Absent: systolic murmur, diastolic murmur, rubs, gallop, clicks Skin exam: Present: warm, dry, intact, normal color. Absent: rash <Gloria Sethi - Last Filed: 02/04/24 16:02> Course Vital Signs 02/04/24 02/04/24 02/04/24 14:29 14:32 17:29 Temperature 97.7 F 98.5 F Pulse Rate 84 68 72 Respiratory 18 16 18 Rate Blood Pressure 114/72 112/64 92/58 O2 Sat by Pulse 97 99 99 Oximetry Medical Decision Making <Gloria Sethi - Last Filed: 02/04/24 16:02> <Brenda Elena - Last Filed: 02/04/24 17:34> - Medical Decision Making Was pt. sent in by a medical professional or institution (, PA, SECURITY SOFTWARE ENGINEER, urgent care, hospital, or correction...) When possible be specific @ -No Did you speak to anyone other than the patient for history (EMS, parent, family, police, friend...)? What history was obtained from this source @ -No Did you review nursing and triage notes (agree or disagree)? Why? @ -I reviewed and agree with nursing and triage notes Were old charts reviewed (outside hosp., previous admission, EMS record, old EKG, old radiological studies, urgent care reports/EKG's, correction records)? Report findings @ -I also reviewed ER visit from 01-24-2024. Patient seen here for right ear pain. Patient diagnosed with otitis media and discharged with Augmentin, loratadine, ibuprofen and Flonase. Differential Diagnosis (chest pain, altered mental status, abdominal pain women, abdominal pain men, vaginal bleeding, weakness, fever, dyspnea, syncope, headache, dizziness, GI bleed, back pain, seizure, CVA, palpatations, mental health, musculoskeletal)? @ -Otitis media, otitis externa, tympanic membrane perforation, mastoiditis... This list is not meant to be all-inclusive EKG interpreted by me (3pts min.). @ -None X-rays interpreted by me (1pt min.). @ -None done CT interpreted by me (1pt min.). @ -Pending U/S interpreted by me (1pt. min.). @ -None done What testing was considered but not performed or refused? (CT, X-rays, U/S, labs)? Why? @ -None What meds were considered but not given or refused? Why? @ -None Did you discuss the management of the patient with other professionals (professionals i.e. , PA, SECURITY SOFTWARE ENGINEER, lab, RT, psych nurse, nursing home social worker, coffee shop attendant, teacher, chief creative officer, case manager specialist)? Give summary @ -No Was smoking cessation discussed for >3mins.? @ -No Was critical care preformed (if so, how long)? @ -No Were there social determinants of health that impacted care today? How? (Homelessness, low income, unemployed, alcoholism, drug addiction, transportation, low edu. Level, literacy, decrease access to med. care, fci, rehab)? @ -No Was there de-escalation of care discussed even if they declined (Discuss DNR or withdrawal of care, Hospice)? DNR status @ -No What co-morbidities impacted this encounter? (DM, HTN, Smoking, COPD, CAD, Cancer, CVA, ARF, Chemo, Hep., AIDS, mental health diagnosis, sleep apnea, morbid obesity)? @ -None Was patient admitted / discharged? Hospital course, mention meds given and route, prescriptions, significant lab abnormalities, going to OR and other pertinent info. @ -33-year-old female presented to the ER with a chief complaint of right ear pain. Patient has been on multiple rounds of antibiotics for the last month without improvement of symptoms. History and physical exam completed. Vitals stable. Patient in no signs of acute distress and nontoxic-appearing. Right tympanic membrane has sclerotic appearing edges with a clear center. No purulent drainage or external auditory canal erythema. Patient did have mild tenderness to posterior auricle. CT will be obtained to rule out mastoiditis. Case signed out to Brenda Elena PA-C pending CT results and disposition. (Gloria Sethi) Discharged. 33-year-old female with right ear pain. On my examination of the patient, she has noted to have right ear canal midle cobblestoning and signs of cerumen, TM is sclerotic in appearance no signs of effusion. CT of the inner ear canal with contrast reveals right auditory canal cerumen is only mild wall thickening, no evidence for mastoiditis. Trace right middle ear effusion in the hypotympanum. Will be treated with topical antibiotic drops emergency department and will be given the antibiotic drops at home instructed to continue these 3 times a day for a week. Additionally, patient is provided with a referral to ENT specialist for further evaluation due to recurrent otitis media and otitis externa. Patient has expressed understanding and all questions have been answered at bedside. Strict return parameters discussed with the patient. Case discussed with Dr. Avalos (Brenda Elena) Disposition <Gloria Sethi - Last Filed: 02/04/24 16:02> Is patient prescribed a controlled substance at d/c from ED?: No Time of Disposition: 16:42 <Brenda Elena - Last Filed: 02/04/24 17:34> Clinical Impression: Cerumen impaction, Otitis externa Disposition: HOME SELF-CARE Condition: Good Instructions (If sedation given, give patient instructions): Ear Infection (ED) Additional Instructions: Return to the emergency department if your symptoms worsen or not improve. Follow-up with provided ENT specialist for further evaluation. Continue to use antibiotic drops 4 drops in the right ear 3 times a day for a week. Referrals: None,Stated [Primary Care Provider] - 1-2 days Leland Stringer MD [STAFF PHYSICIAN] - 1-2 days
--- NOTE | 2024-02-04 16:10 | CT ---
EXAMINATION TYPE: CT iac w con CT DLP: 267 mGycm, Automated exposure control for dose reduction was used. DATE OF EXAM: 02/04/2024 3:50 PM INDICATION: Patient age:Female; 33 years old; Reason for study: ear pain r/o mastoiditis; [facility]. COMPARISON: None. TECHNIQUE: Multiple thin axial images were obtained through the temporal bones and internal auditory canals. Additional coronal reformatted images were obtained. No IV contrast was utilized. STENVER a nd POSCHL views were created on a separate work station. CT Contrast: 100ml mL of Isovue 300 with IV Contrast, none. FINDINGS: Right Temporal Bone: External Ear: The external auditory canal is opacified along the tympanic membrane., The tympanic mem brane is present and unremarkable. There may be mild soft tissue thickening of the skin overlying the external auditory canal. Middle Ear: The ossicles demonstrate a normal appearance. Prussak's space is clear and the scutum i s intact. There is no evidence of osseous erosion and the tegmen tympani is intact. There is trace am ount of fluid in the hypotympanum Inner Ear: Cochlea, vestibule and semi circular canals are unremarkable. No evidence of carotid chacorta l dehiscence. Two and a half turns of the cochlea are identified. The vestibular aqueduct is not enl arged. Mastoid Air Cells: The mastoid air cells are clear. The tegmen mastoideum is intact. The aditus ad an trum is clear. Internal Auditory Canal: The internal auditory canal is unremarkable. Left Temporal Bone: External Ear: The external auditory canal is unremarkable, The tympanic membrane is present and unrem arkable. Middle Ear: The ossicles demonstrate a normal appearance. Prussak's space is clear and the scutum i s intact. There is no evidence of osseous erosion and the tegmen tympani is intact. Inner Ear: Cochlea, vestibule and semi circular canals are unremarkable. No evidence of carotid chacorta l dehiscence. Two and a half turns of the cochlea are identified. The vestibular aqueduct is not enl arged. Mastoid Air Cells: The mastoid air cells are clear. The tegmen mastoideum is intact. The aditus ad an trum is clear. Internal Auditory Canal: The internal auditory canal is unremarkable. Other: Mild paranasal sinus mucosal thickening. IMPRESSION: 1. Right external auditory canal cerumen possibly mild wall thickening correlate for otitis externa. Follow-up with ENT recommended to clear cerumen. No evidence for mastoiditis. 2. Trace right middle ear effusion effusion in the hypotympanum.
[2024-02-04] MEDS: CIPROFLOXACIN-DEXAMETH 0.3-0.1% DROPS 7.5 ML BTL RIGHT EAR STA (17:00)
[2024-02-04] MEDS: KETOROLAC 15 MG/ML 1 ML VIAL IVP STA (17:01)
[2024-02-04 17:30] VITALS: BP 92/58; PULSE 72; RESP 18; TEMP 98.5
== END 2024-02-04 17:30 | disposition home or self-care (01) ==
LOC: EC 14:29
DX: H61.21 Impacted cerumen, right ear (principal); H66.91 Otitis media, unspecified, right ear; Z87.891 Personal history of nicotine dependence
CPT/HCPCS: 70481; 99284; 96374; J1885; Q9967

== ENCOUNTER 2024-08-01 11:10 | Emergency (ER) | payer OTHER ==
[2024-08-01 11:23] VITALS: RESP 20
--- NOTE | 2024-08-01 11:36 | ED ---
General Adult HPI - General Chief complaint: Urogenital Stated complaint: disc/pain urination Time Seen by Provider: 08/01/24 11:23 Source: patient, RN notes reviewed Mode of arrival: ambulatory Limitations: no limitations - History of Present Illness Initial comments: This is a 33-year-old female no significant medical history presents the emergency department for complaint of dysuria and increased urinary frequency over the past approximately 6 days. Patient is concerned that she may have a urinary tract infection. She denies vaginal discharge, vaginal odor, flank pain, nausea, vomiting, fevers or chills. Patient states that she started her menstrual cycle recently and is unaware if she is experiencing hematuria or blood from her menses. Patient states that she has had recent sexual interactions with a new partner and is unaware if she may have been exposed to a STI. She denies history of STI/STD, kidney stones. - Related Data Home Medications Medication Instructions Recorded Confirmed Pnv No.95/Ferrous Fum/Folic AC 1 tab PO DAILY 11/23/20 11/24/20 [ Multivitamin Tablet] Previous Rx's Medication Instructions Recorded Ferrous Sulfate [Iron (65 MG 325 mg PO BID-W/MEALS #60 tab 11/27/20 Elemental)] Ibuprofen [Motrin] 600 mg PO Q6H PRN #30 tab 11/27/20 oxyCODONE HCL [OxyIR] 5 mg PO Q4HR PRN #18 tab 11/27/20 Amoxic-Pot Clav 875-125Mg 1 tab PO Q12HR #20 tab 01/24/24 [Augmentin 875-125] Fluticasone Nasal [place] [Flonase 2 spr EA NOSTRIL DAILY #16 gm 01/24/24 Nasal [place]] Ibuprofen [Motrin] 800 mg PO Q6HR #30 tab 01/24/24 Loratadine [Claritin] 10 mg PO DAILY #10 tab 01/24/24 Cephalexin [Keflex] 500 mg PO Q6HR #40 cap 08/01/24 Allergies Allergy/AdvReac Type Severity Reaction Status Date / Time No Known Allergies Allergy Verified 02/04/24 14:32 Review of Systems ROS Statement: Those systems with pertinent positive or pertinent negative responses have been documented in the HPI. ROS Other: All systems not noted in ROS Statement are negative. Past Medical History Past Medical History: No Reported History Additional Past Medical History / Comment(s): Patient had a previous term vaginal delivery History of Any Multi-Drug Resistant Organisms: None Reported Past Surgical History: No Surgical Hx Reported Additional Past Surgical History / Comment(s): [place] tooth extraction Past Anesthesia/Blood Transfusion Reactions: No Reported Reaction Past Psychological History: No Psychological Hx Reported Smoking Status: Former smoker Past Alcohol Use History: Occasional Past Drug Use History: Marijuana - Past Family History Mother Family Medical History: Cancer, Diabetes Mellitus Additional Family Medical History / Comment(s): Type II DM General Exam Limitations: no limitations General appearance: alert, in no apparent distress Respiratory exam: Present: normal lung sounds bilaterally. Absent: respiratory distress, wheezes, rales, rhonchi, stridor Cardiovascular Exam: Present: regular rate, normal rhythm, normal heart sounds. Absent: systolic murmur, diastolic murmur, rubs, gallop, clicks GI/Abdominal exam: Present: soft, normal bowel sounds. Absent: distended, tenderness, guarding, rebound, rigid Extremities exam: Present: normal inspection, full ROM, normal capillary refill. Absent: tenderness, pedal edema, joint swelling, calf tenderness Back exam: Present: normal inspection. Absent: CVA tenderness (R), CVA tenderness (L) Course Vital Signs 08/01/24 08/01/24 11:21 12:37 Temperature 98 F 98.0 F Pulse Rate 73 70 Respiratory 20 20 Rate Blood Pressure 104/72 110/68 O2 Sat by Pulse 98 99 Oximetry Medical Decision Making - Medical Decision Making Was pt. sent in by a medical professional or institution ([facility], [employer], urgent care, hospital, or custodial...) When possible be specific @ -No Did you speak to anyone other than the patient for history (EMS, parent, family, police, friend...)? What history was obtained from this source @ -No Did you review nursing and triage notes (agree or disagree)? Why? @ -I reviewed and agree with nursing and triage notes Were old charts reviewed (outside hosp., previous admission, EMS record, old EKG, old radiological studies, urgent care reports/EKG's, custodial records)? Report findings @ -No old charts were reviewed Differential Diagnosis (chest pain, altered mental status, abdominal pain women, abdominal pain men, vaginal bleeding, weakness, fever, dyspnea, syncope, headache, dizziness, GI bleed, back pain, seizure, CVA, palpatations, mental health, musculoskeletal)? @ -Differential Abdominal Pain Women: Appendicitis, Cholecystitis, diverticulosis, ischemic bowel, pancreatitis, hepatitis, UTI, gastroenteritis, AAA, incarcerated hernia, bowel obstruction, constipation, inflammatory bowel, hepatitis, peptic ulcer disease, splenic infarction, perforated viscus, vulvitis, ovarian torsion, PID, kidney stone, placenta abruption, this is not meant to be an all-inclusive list EKG interpreted by me (3pts min.). @ -None X-rays interpreted by me (1pt min.). @ -None done CT interpreted by me (1pt min.). @ -None done U/S interpreted by me (1pt. min.). @ -None done What testing was considered but not performed or refused? (CT, X-rays, U/S, labs)? Why? @ -None What meds were considered but not given or refused? Why? @ -None Did you discuss the management of the patient with other professionals (professionals i.e. , PA, [employer], lab, RT, psych nurse, psych social worker, cooking chef, teacher, national insurance officer, case consultant)? Give summary @ -No Was smoking cessation discussed for >3mins.? @ -No Was critical care preformed (if so, how long)? @ -No Were there social determinants of health that impacted care today? How? (Homelessness, low income, unemployed, alcoholism, drug addiction, transportation, low edu. Level, literacy, decrease access to med. care, care home, rehab)? @ -No Was there de-escalation of care discussed even if they declined (Discuss DNR or withdrawal of care, Hospice)? DNR status @ -No What co-morbidities impacted this encounter? (DM, HTN, Smoking, COPD, CAD, Cancer, CVA, ARF, Chemo, Hep., AIDS, mental health diagnosis, sleep apnea, morbid obesity)? @ -None Was patient admitted / discharged? Hospital course, mention meds given and route, prescriptions, significant lab abnormalities, going to OR and other pertinent info. @ -discharged. 33-year-old female presenting with dysuria over the past 6 days. Physical examination is unremarkable. Patient will be evaluated via urinalysis including hCG and testing for chlamydia and gonorrhea. Urinalysis remarkable for white cells with large leukocyte esterase and rare bacteria and blood consistent with patient being on menses. hCG is negative. Patient's urine is sent for culture and she will be treated with Rocephin and Keflex. Tract infection. Patient was offered prophylactic treatment for chlamydia gonorrhea however was declined states that she will report back for treatment if cultures to return positive. Case discussed with Dr. Avalos Undiagnosed new problem with uncertain prognosis? @ -No Drug Therapy requiring intensive monitoring for toxicity (Heparin, Nitro, Insulin, Cardizem)? @ -No Were any procedures done? @ -No Diagnosis/symptom? @ -UTI Acute, or Chronic, or Acute on Chronic? @ -acute Uncomplicated (without systemic symptoms) or Complicated (systemic symptoms)? @ -uncomplicated Side effects of treatment? @ -No Exacerbation, Progression, or Severe Exacerbation? @ -No Poses a threat to life or bodily function? How? (Chest pain, [place], NH, pneumonia, PE, COPD, DKA, ARF, appy, cholecystitis, CVA, Diverticulitis, Homicidal, Suicidal, threat to staff... and all critical care pts) @ -No - Lab Data Lab Results 08/01/24 08/01/24 Range/Units 11:29 11:29 Urine Color Colorless Urine Appearance Cloudy H (Clear) Urine pH 5.5 (5.0-8.0) Ur Specific [place] 1.008 (1.001-1.035) Urine Protein Negative (Negative) Urine Glucose (UA) Negative (Negative) Urine Ketones Negative (Negative) Urine Blood Large H (Negative) Urine Nitrite Negative (Negative) Urine Bilirubin Negative (Negative) Urine Urobilinogen <2.0 (<2.0) mg/dL Ur Leukocyte Esterase Large H (Negative) Urine RBC 89 H (0-5) /hpf Urine WBC 61 H (0-5) /hpf Ur Squamous Epith Cells 1 (0-4) /hpf Urine Bacteria Rare H (None) /hpf Urine HCG, Qual Not Detected (Not Detectd) Disposition Clinical Impression: UTI (urinary tract infection) Disposition: HOME SELF-CARE Condition: Good Instructions (If sedation given, give patient instructions): Urinary Tract Infection in Women (ED) Additional Instructions: Please return to the Emergency Department if symptoms worsen or any other concerns. Prescriptions: Cephalexin [Keflex] 500 mg PO Q6HR #40 cap Is patient prescribed a controlled substance at d/c from ED?: No Referrals: None,Stated [Primary Care Provider] - 1-2 days Time of Disposition: 12:32
[2024-08-01 12:04] LABS: Appearance,Urine Cloudy (Clear); Bacteria,Urine Rare /hpf; Bilirubin,Urine Negative (Negative); Blood,Urine Large (Negative); Color,Urine Colorless; Glucose,Urine (UA) Negative (Negative); Ketones,Urine Negative (Negative); Leukocyte Esterase,Urine Large (Negative); Nitrite,Urine Negative (Negative); PH, Urine 5.5 (5.0-8.0); Protein,Urine Negative (Negative); RBC,Urine 89 /hpf (0-5); Specific Gravity,Urine 1.008 (1.001-1.035); Squamous Epithelial Cell,Urine 1 /hpf (0-4); Urobilinogen,Urine <2.0 mg/dL (<2.0); WBC,Urine 61 /hpf (0-5)
[2024-08-01] MEDS: cefTRIAXone 1,000 MG VIAL (IM USE) IM STA (12:29)
[2024-08-01 12:38] VITALS: BP 110/68; PULSE 70; TEMP 98
[2024-08-03 13:10] LABS: C. trachomatis,PCR Negative (Negative)
[2024-08-03 13:16] LABS: N. gonorrhoeae,PCR Negative (Negative)
== END 2024-08-01 12:38 | disposition home or self-care (01) ==
LOC: EC 11:10
DX: N39.0 Urinary tract infection, site not specified (principal); Z87.891 Personal history of nicotine dependence
CPT/HCPCS: 81001; 81025; 87491; 87591; 87086; 99283; 96372; J0696; 87077; 87186